=== PATIENT | male | born 1985 | race African-American/Black ===

== ENCOUNTER 2019-03-04 17:54 | Observation (INO) | payer OTHER ==
[2019-03-04] MEDS ORDERED: HYDROmorphone 1 MG/1 ML INJ IV ONE (18:37)
--- NOTE | 2019-03-04 19:04 | XRay Report ---
HISTORY:injury, deformity COMPARISON: None. TECHNIQUE: AP lateral and obliques views were obtained FINDINGS: Bones: Transverse fracture midshaft of the radius with overriding and displacement. Joint spaces: Maintained. Soft tissues: No significant abnormality. Additional findings: None. IMPRESSION: 1. Midshaft fracture of the radius Signer Name: Dima Gonzalez MD Signed: 03/04/2019 7:00 PM Workstation Name: [id number]
[2019-03-04] MEDS ORDERED: SODIUM CHLORIDE 0.9% 1000 ML 1,000 ML IV ONE ×2 (19:46→21:42)
[2019-03-04 20:04] LABS: Basophils % (Auto) 0.3 % (0.0-1.8); Eosinophils % (Auto) 0.3 % (0.0-4.3); Hematocrit 37.7 % (35.5-45.6); Hemoglobin 12.7 gm/dl (11.8-15.2); Lymphocytes # (Auto) 1.7 K/mm3 (1.2-5.4); Lymphocytes % (Auto) 15.8 % (13.4-35.0); Mean Corpuscular HGB Conc 34 % (32-34); Mean Corpuscular Volume 84 fl (84-94); Monocytes % (Auto) 9.3 % (0.0-7.3); Platelet Count 255 K/mm3 (140-440); Red Blood Count 4.48 M/mm3 (3.65-5.03); Red Cell Distribution Width 12.8 % (13.2-15.2)
[2019-03-04] MEDS ORDERED: KETOROLAC 30 MG/1 ML INJ IV ONE (20:17)
[2019-03-04 20:18] LABS: INR 1.11 (0.87-1.13)
[2019-03-04 20:24] LABS: BUN/Creatinine Ratio 23; Blood Urea Nitrogen 16 mg/dL (9-20); Calcium 8.7 mg/dL (8.4-10.2); Hemolysis Index 3
[2019-03-04] MEDS ORDERED: KETAMINE 500 MG/5 ML VIAL MDV ONE (20:51)
[2019-03-04] MEDS ORDERED: KETAMINE 500 MG/5 ML VIAL MDV IV ONE (21:00)
--- NOTE | 2019-03-04 21:00 | Emergency Department Report ---
ED Extremity Problem HPI - General Chief complaint: Extremity Injury, Upper Stated complaint: FRACTURED (R) ARM Time Seen by Provider: 03/04/19 18:49 Source: patient, EMS Mode of arrival: Stretcher Limitations: No Limitations - History of Present Illness Initial comments: Patient reports that he was running and fell onto the concrete on his outstretched right arm. Reports pain at the right forearm after the fall. Denies head trauma. Denies alcohol/drugs. MD Complaint: extremity pain Severity scale (0 -10): 7 - Related Data Home Medications Medication Instructions Recorded Confirmed Last Taken Lisinopril/Hydrochlorothiazide 1 tab PO QDAY 01/25/16 01/25/16 01/24/16 [Zestoretic 10-12.5 mg] y Allergies Allergy/AdvReac Type Severity Reaction Status Date / Time No Known Allergies Allergy Verified 01/25/16 11:12 ED Review of Systems ROS: Stated complaint: FRACTURED (R) ARM Other details as noted in HPI Other: GENERAL: No weight change, fatigue, fever, chills, or night sweats SKIN: No changes in skin or hair, no itching, no rashes, no jaundice HEAD: No trauma, headache, or visual changes EYES: No blurriness, tearing, itching, acute visual loss, conjunctival discoloration, or scleral icterus EARS: No hearing loss, tinnitus, vertigo, or earache NOSE: No rhinorrhea, stuffiness, sneezing, itching, or epistaxis MOUTH: No bleeding gums, hoarseness, sore throat, or swelling CARDIAC: No new murmur, chest pain, palpitations, dyspnea on exertion, orthopnea, PND, or edema RESPIRATORY: No shortness of breath, wheeze, cough, sputum production, he moptysis, pneumonia, asthma, bronchitis, or emphysema GI: No change in appetite, nausea, vomiting, dysphagia, diarrhea, constipation, hematemesis, melena, hematochezia, or abdominal pain URINARY: No frequency, urgency, polyuria, dysuria, hematuria, or incontinence MUSCULOSKELETAL: Right forearm pain and deformity NEUROLOGIC: No headache, syncope, loss of sensation, numbness, tingling, tremors, weakness, paralysis, seizures HEMATOLOGIC: No anemia, easy bruising, bleeding, petechiae, or purpura ENDOCRINE: No hot or cold intolerance, sweating, polyuria, polydipsia or, polyphagia no thyroid problems PSYCHIATRIC: No change in mood, no anxiety, no depression ED Past Medical Hx - Past Medical History Previous Medical History?: No Hx Hypertension: Yes - Surgical History Past Surgical History?: No - Social History Smoking Status: Former Smoker Substance Use Type: None - Medications Home Medications: Home Medications Medication Instructions Recorded Confirmed Last Taken Type Lisinopril/Hydrochlorothiazide 1 tab PO QDAY 01/25/16 01/25/16 01/24/16 History [Zestoretic 10-12.5 mg] y ED Physical Exam - General Limitations: No Limitations - Other Other exam information: GENERAL: Patient in no acute distress HEAD: Normocephalic, atraumatic EYES: PERRLA, EOM intact, no scleral icterus, no conjunctival hemorrhage, visual guidry and acuity wnl NOSE: No tenderness, discharge, sinus tenderness MOUTH: No erythema, bleeding, exudate HEART: Regular rate and rhythm, no murmur, S1-S2 are auscultated, no edema, pulses are symmetric LUNGS: No respiratory distress. Bilateral breath sounds, No tachypnea, No retractions, No wheezing, rales, rhonchi ABDOMEN: Normal bowel sounds, abdomen soft, no tenderness, no rebound, no guarding, no distention, no masses, no CVA tenderness MUSCULOSKELETAL: Right forearm tendernss, deformity. Neurovascularly intact. NEUROLOGIC: GCS 15, Alert and Oriented x3, Cranial nerves intact, normal sensation, normal strength, no cerebellar deficit, NIHSS 0 SKIN: Skin is warm and dry, no wounds, no rashes ED Course Vital Signs 03/04/19 03/04/19 03/04/19 18:12 20:04 20:09 Temperature 99.4 F Pulse Rate 104 H 102 H Respiratory 18 21 18 Rate Blood Pressure 143/85 O2 Sat by Pulse 96 Oximetry 03/04/19 03/04/19 03/04/19 20:16 20:30 20:46 Temperature Pulse Rate 103 H 100 H 99 H Respiratory 31 H 21 22 Rate Blood Pressure O2 Sat by Pulse 93 95 91 Oximetry 03/04/19 03/04/19 03/04/19 21:00 21:16 21:30 Temperature Pulse Rate 103 H 104 H 101 H Respiratory 28 H 24 18 Rate Blood Pressure 137/77 132/82 140/90 O2 Sat by Pulse 95 95 94 Oximetry 03/04/19 03/04/19 03/04/19 21:34 21:46 22:00 Temperature Pulse Rate 99 H 96 H 94 H Respiratory 20 21 25 H Rate Blood Pressure 135/83 143/85 O2 Sat by Pulse 93 93 Oximetry 03/04/19 22:16 Temperature Pulse Rate 92 H Respiratory 27 H Rate Blood Pressure 140/77 O2 Sat by Pulse 95 Oximetry - Moderate Sedation Indications: fracture/dislocation redu ASA Class: II Mallampati Airway Score: 2 Time of Last PO Intake: 14:00 (approximately) Preparation: heater worker applied, pulse oximeter, capnometry used, supplemental O2 applied, suction/airway equipment at bedside, IV secured Ketamine: IV Ketamine Dose: 35 Complications: none Patient Tolerated Procedure: well, no complications - Orthopedic Fracture Reduction Fracture #1 Consent Obtained: written consent Time Out Performed: Yes Side: right Fracture Reduction Location: radius Analgesia: moderate sedation Technique: traction/counter-traction Post Reduction X-rays Demonstrate: acceptable reduction Post-Reduction Neuro Exam: intact Post-Reduction Vascular Exam: intact Splint Applied: Yes (lorena) Patient Tolerated Procedure: well, no complications ED Medical Decision Making - Lab Data Result diagrams: 03/04/19 19:50 03/04/19 19:50 Laboratory Results - last 24 hr 03/04/19 03/04/19 03/04/19 19:50 19:50 19:50 WBC 10.5 RBC 4.48 Hgb 12.7 Hct 37.7 MCV 84 MCH 28 MCHC 34 RDW 12.8 L Plt Count 255 Lymph % (Auto) 15.8 [place] % (Auto) 9.3 H Eos % (Auto) 0.3 Baso % (Auto) 0.3 Lymph # 1.7 [place] # 1.0 H Eos # 0.0 Baso # 0.0 Seg Neutrophils % 74.3 H Seg Neutrophils # 7.8 H PT 14.2 INR 1.11 APTT 37.0 H Sodium 136 L Potassium 3.7 Chloride 98.5 Carbon Dioxide 25 Anion Gap 16 BUN 16 Creatinine 0.7 L Estimated GFR > 60 BUN/Creatinine Ratio 23 Glucose 110 H Calcium 8.7 - Radiology Data Radiology results: report reviewed - Medical Decision Making At [address] Lima orthopedic surgery call back updated. Reports the patient injury required ORIF for repair. Reports closed reduction will be unsuccessful. Request sugar tong splint. Reports since patient is neurovascularly intact, the patient has the option to be discharged with outpatient follow up, or the patient can stay in the hospital overnight for surgical repair in the morning. Request admit the patient to the hospitalist. Patient updated and reports he will think about his options and make a decision. At 2244 patient comfortable. Reports some nausea. Reports he prefers admission for ortho evaluation in the morning. Dr. Be hospitalist updated and accepts admission. Critical Care Time: Yes Critical care time in (mins) excluding proc time.: 42 Critical care attestation.: If time is entered above; I have spent that time in minutes in the direct care of this critically ill patient, excluding procedure time. 42 ED Disposition Clinical Impression: Right radial fracture Qualifiers: Encounter type: initial encounter Radius location: shaft Fracture type: closed Fracture morphology: transverse Fracture alignment: displaced Qualified Code(s): S52.321A - Displaced transverse fracture of shaft of right radius, initial encounter for closed fracture Disposition: DC-09 OP ADMIT IP TO THIS HOSP Is pt being admited?: Yes Condition: Stable Time of Disposition: 22:46
[2019-03-04] MEDS ORDERED: ONDANSETRON 4 MG/2 ML INJ ONE (21:09)
[2019-03-04] MEDS ORDERED: ONDANSETRON 4 MG/2 ML INJ IV ONE (21:25)
--- NOTE | 2019-03-04 21:52 | XRay Report ---
RIGHT FOREARM 1 VIEW(S) 9:25 PM INDICATION / CLINICAL INFORMATION: dislocation COMPARISON: 6:24 PM FINDINGS: BONES / JOINT(S): There is slight improvement in the displaced radial shaft fracture, but there is 9 mm of persistent radial displacement of the distal fracture fragment. Improved alignment of the dista l radioulnar joint. SOFT TISSUES: Right arm is in a fiberglass splint. ADDITIONAL FINDINGS: None. Signer Name: Alisa Conklin MD Signed: 03/04/2019 9:47 PM Workstation Name: [id number]
[2019-03-04] MEDS ORDERED: ONDANSETRON 4 MG/2 ML INJ IV PRN (22:47)
[2019-03-04] MEDS ORDERED: ACETAMINOPHEN 325 MG TAB PO PRN (22:47)
[2019-03-04] MEDS ORDERED: PROCHLORPERAZINE EDISYLATE 10 MG/2 ML VIAL IV ONE (22:49)
[2019-03-04] MEDS ORDERED: MORPHINE 2 MG/1 ML INJ IV PRN (23:01)
--- NOTE | 2019-03-04 23:48 | History and Physical Report ---
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 ED with complaints of right forearm pain and deformity. Patient states that he was running in and hold in his radio when he tripped and fell onto the concrete using his right hand to break his fall. After getting up on the concrete patient noticed that his right forearm was deformed. Shortly after he began experiencing right forearm pain. He rates his pain 7/10. The pain is achy and constant. He denies head injury/trauma or loss of consciousness. Past History Past Medical History: hypertension Past Surgical History: No surgical history Social history: other (smokes 1-2 cigarettes occasionally) Family history: hypertension Medications and Allergies Allergies Allergy/AdvReac Type Severity Reaction Status Date / Time No Known Allergies Allergy Verified 01/25/16 11:12 Home Medications Medication Instructions Recorded Confirmed Last Taken Type Lisinopril/Hydrochlorothiazide 12.5 tab PO QDAY 01/25/16 03/04/19 03/04/19 History [Zestoretic 10-12.5 mg] Active Meds: Active Medications Acetaminophen (Tylenol) 650 mg PO Q4H PRN PRN Reason: Pain MILD(1-3)/Fever >100.5/[place] Morphine Sulfate (Morphine) 2 mg IV Q4H PRN PRN Reason: Pain, Moderate (4-6) Ondansetron HCl (Zofran) 4 mg IV Q8H PRN PRN Reason: Nausea And Vomiting Sodium Chloride (Sodium Chloride Flush Syringe 10 Ml) 10 ml IV BID SANDY Sodium Chloride (Sodium Chloride Flush Syringe 10 Ml) 10 ml IV PRN PRN PRN Reason: LINE FLUSH Review of Systems All systems: negative Musculoskeletal: other (right forearm pain and deformity with limited range of motion) Exam - Physical Exam Narrative exam: General appearance: Present: No acute distress, alert and oriented 3, pleasant, well-developed, well-nourished, adult male - EENT Eyes: Present: PERRL, EOM intact ENT: hearing intact, normal dentition - Neck Neck: Present: supple, normal ROM - Respiratory Respiratory effort: Non-labored Respiratory: bilateral: CTA - Cardiovascular Heart rate:92 (bpm) Rhythm:SR Heart Sounds: Present: S1, S2. - Extremities Extremities: no ischemia, pulses intact - Peripheral Assessment Peripheral Pulses: within normal limits - Abdominal General gastrointestinal: soft, non-tender, normal bowel sounds, - Integumentary Integumentary: Present: warm, dry - Musculoskeletal Musculoskeletal: Right forearm deformity limited range of motion, able to move lower extremities, able to move left upper extremity, -Neurological Neurological: CN II-XII grossly intact - Psychiatric Psychiatric: cooperative - Constitutional Vitals: Temp Pulse Resp BP Pulse Ox 99.4 F 92 H 27 H 140/77 95 03/04/19 18:12 03/04/19 22:16 03/04/19 22:16 03/04/19 22:16 03/04/19 22:16 Results - Labs CBC & Chem 7: 03/04/19 19:50 03/04/19 19:50 Labs: Laboratory Last Values WBC 10.5 K/mm3 (4.5-11.0) 03/04/19 19:50 RBC 4.48 M/mm3 (3.65-5.03) 03/04/19 19:50 Hgb 12.7 gm/dl (11.8-15.2) 03/04/19 19:50 Hct 37.7 % (35.5-45.6) 03/04/19 19:50 MCV 84 fl (84-94) 03/04/19 19:50 MCH 28 pg (28-32) 03/04/19 19:50 MCHC 34 % (32-34) 03/04/19 19:50 RDW 12.8 % (13.2-15.2) L 03/04/19 19:50 Plt Count 255 K/mm3 (140-440) 03/04/19 19:50 Lymph % (Auto) 15.8 % (13.4-35.0) 03/04/19 19:50 [place] % (Auto) 9.3 % (0.0-7.3) H 03/04/19 19:50 Eos % (Auto) 0.3 % (0.0-4.3) 03/04/19 19:50 Baso % (Auto) 0.3 % (0.0-1.8) 03/04/19 19:50 Lymph # 1.7 K/mm3 (1.2-5.4) 03/04/19 19:50 [place] # 1.0 K/mm3 (0.0-0.8) H 03/04/19 19:50 Eos # 0.0 K/mm3 (0.0-0.4) 03/04/19 19:50 Baso # 0.0 K/mm3 (0.0-0.1) 03/04/19 19:50 Seg Neutrophils % 74.3 % (40.0-70.0) H 03/04/19 19:50 Seg Neutrophils # 7.8 K/mm3 (1.8-7.7) H 03/04/19 19:50 PT 14.2 Sec. (12.2-14.9) 03/04/19 19:50 INR 1.11 (0.87-1.13) 03/04/19 19:50 APTT 37.0 Sec. (24.2-36.6) H 03/04/19 19:50 Sodium 136 mmol/L (137-145) L 03/04/19 19:50 Potassium 3.7 mmol/L (3.6-5.0) 03/04/19 19:50 Chloride 98.5 mmol/L (98-107) 03/04/19 19:50 Carbon Dioxide 25 mmol/L (22-30) 03/04/19 19:50 Anion Gap 16 mmol/L 03/04/19 19:50 BUN 16 mg/dL (9-20) 03/04/19 19:50 Creatinine 0.7 mg/dL (0.8-1.5) L 03/04/19 19:50 Estimated GFR > 60 ml/min 03/04/19 19:50 BUN/Creatinine Ratio 23 % 03/04/19 19:50 Glucose 110 mg/dL (75-100) H 03/04/19 19:50 Calcium 8.7 mg/dL (8.4-10.2) 03/04/19 19:50 - Imaging and Cardiology Imaging and Cardiology: XR Right Forearm: FINDINGS: Bones: Transverse fracture midshaft of the radius with overriding and displacement. Joint spaces: Maintained. Soft tissues: No significant abnormality. Additional findings: None. IMPRESSION: 1. Midshaft fracture of the radius XR Right Fore Arm post splint application: FINDINGS: BONES / JOINT(S): There is slight improvement in the displaced radial shaft fracture, but there is 9 mm of persistent radial displacement of the distal fracture fragment. Improved alignment of the distal radioulnar joint. SOFT TISSUES: Right arm is in a fiberglass splint. ADDITIONAL FINDINGS: None. 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 Right Forearm Fracture -Pt was running and fell on right arm -C/o right forearm pain and deformity -XR Right Forearm shows Midshaft fracture of the radius -NPO -Continue Supportive Care -Dr. Lima following with plans for ORIF for repair in am HTN -Monitor BP -Resume home antihypertensive meds home antihypertensive meds once medication reconciliation has been completed Tobacco use -Smokes 1-2 cigarettes every 2-3 months -Counseled for cessation -Nicotine patch when necessary Advance Directives: No VTE prophylaxis?: Mechanical Plan of care discussed with patient/family: Yes <OSORIO JAMA - Last Filed: 03/05/19 01:56> History of Present Illness Date of admission: 03/05/19 01:46 Medications and Allergies Active Meds: Active Medications Acetaminophen (Tylenol) 650 mg PO Q4H PRN PRN Reason: Pain MILD(1-3)/Fever >100.5/[place] Enoxaparin Sodium (Enoxaparin) 40 mg SUB-Q DAILY SANDY Morphine Sulfate (Morphine) 2 mg IV Q4H PRN PRN Reason: Pain, Moderate (4-6) Nicotine (Habitrol) 14 mg TD QDAY PRN PRN Reason: Smoking cessation Ondansetron HCl (Zofran) 4 mg IV Q8H PRN PRN Reason: Nausea And Vomiting Sodium Chloride (Sodium Chloride Flush Syringe 10 Ml) 10 ml IV BID SANDY Sodium Chloride (Sodium Chloride Flush Syringe 10 Ml) 10 ml IV PRN PRN PRN Reason: LINE FLUSH Exam - Constitutional Vitals: Temp Pulse Resp BP Pulse Ox 98.2 F 93 H 18 138/88 95 03/05/19 01:50 03/05/19 01:50 03/05/19 01:50 03/05/19 01:50 03/05/19 01:50 Results - Labs CBC & Chem 7: 03/04/19 19:50 03/04/19 19:50 Labs: Laboratory Last Values WBC 10.5 K/mm3 (4.5-11.0) 03/04/19 19:50 RBC 4.48 M/mm3 (3.65-5.03) 03/04/19 19:50 Hgb 12.7 gm/dl (11.8-15.2) 03/04/19 19:50 Hct 37.7 % (35.5-45.6) 03/04/19 19:50 MCV 84 fl (84-94) 03/04/19 19:50 MCH 28 pg (28-32) 03/04/19 19:50 MCHC 34 % (32-34) 03/04/19 19:50 RDW 12.8 % (13.2-15.2) L 03/04/19 19:50 Plt Count 255 K/mm3 (140-440) 03/04/19 19:50 Lymph % (Auto) 15.8 % (13.4-35.0) 03/04/19 19:50 [place] % (Auto) 9.3 % (0.0-7.3) H 03/04/19 19:50 Eos % (Auto) 0.3 % (0.0-4.3) 03/04/19 19:50 Baso % (Auto) 0.3 % (0.0-1.8) 03/04/19 19:50 Lymph # 1.7 K/mm3 (1.2-5.4) 03/04/19 19:50 [place] # 1.0 K/mm3 (0.0-0.8) H 03/04/19 19:50 Eos # 0.0 K/mm3 (0.0-0.4) 03/04/19 19:50 Baso # 0.0 K/mm3 (0.0-0.1) 03/04/19 19:50 Seg Neutrophils % 74.3 % (40.0-70.0) H 03/04/19 19:50 Seg Neutrophils # 7.8 K/mm3 (1.8-7.7) H 03/04/19 19:50 PT 14.2 Sec. (12.2-14.9) 03/04/19 19:50 INR 1.11 (0.87-1.13) 03/04/19 19:50 APTT 37.0 Sec. (24.2-36.6) H 03/04/19 19:50 Sodium 136 mmol/L (137-145) L 03/04/19 19:50 Potassium 3.7 mmol/L (3.6-5.0) 03/04/19 19:50 Chloride 98.5 mmol/L (98-107) 03/04/19 19:50 Carbon Dioxide 25 mmol/L (22-30) 03/04/19 19:50 Anion Gap 16 mmol/L 03/04/19 19:50 BUN 16 mg/dL (9-20) 03/04/19 19:50 Creatinine 0.7 mg/dL (0.8-1.5) L 03/04/19 19:50 Estimated GFR > 60 ml/min 03/04/19 19:50 BUN/Creatinine Ratio 23 % 03/04/19 19:50 Glucose 110 mg/dL (75-100) H 03/04/19 19:50 Calcium 8.7 mg/dL (8.4-10.2) 03/04/19 19:50 Assessment and Plan Assessment and plan: 34-year-old man with history of hypertension status post fall and sustaining a radial fracture. Agree with plans as stated above. Patient seen and examined, discussed with nurse practitioner
[2019-03-05] MEDS ORDERED: NICOTINE 14 MG/24 HR PATCH TD PRN (00:47)
[2019-03-05 04:57] LABS: Basophils % (Auto) 0.4 % (0.0-1.8); Eosinophils % (Auto) 0.1 % (0.0-4.3); Hematocrit 35.9 % (35.5-45.6); Hemoglobin 12.2 gm/dl (11.8-15.2); Lymphocytes # (Auto) 1.6 K/mm3 (1.2-5.4); Lymphocytes % (Auto) 16.6 % (13.4-35.0); Mean Corpuscular HGB Conc 34 % (32-34); Mean Corpuscular Volume 85 fl (84-94); Monocytes # (Auto) 0.8 K/mm3 (0.0-0.8); Monocytes % (Auto) 7.9 % (0.0-7.3); Platelet Count 231 K/mm3 (140-440); Red Blood Count 4.24 M/mm3 (3.65-5.03); Red Cell Distribution Width 12.5 % (13.2-15.2)
[2019-03-05 05:15] LABS: BUN/Creatinine Ratio 20; Blood Urea Nitrogen 12 mg/dL (9-20); Calcium 8.7 mg/dL (8.4-10.2); Hemolysis Index 4
[2019-03-05] MEDS ORDERED: ENOXAPARIN 40 MG/0.4 ML INJ SUB-Q SCH (10:00)
[2019-03-05] MEDS ORDERED: fentaNYL 100 MCG/2 ML INJ IV NR (11:49)
[2019-03-05] MEDS ORDERED: fentaNYL 100 MCG/2 ML INJ IV PRN (11:49)
[2019-03-05] MEDS ORDERED: ONDANSETRON 4 MG/2 ML INJ IV PRN (11:49)
[2019-03-05] MEDS ORDERED: HYDROmorphone 1 MG/1 ML INJ IV PRN (11:49)
[2019-03-05] MEDS ORDERED: ACETAMINOPHEN 325 MG TAB PO NR (11:51)
--- NOTE | 2019-03-05 11:51 | Anesthesia Day of Surgery ---
Anesthesia Day of Surgery - Day of Surgery Patient Examined: Yes Patient H&P Reviewed: Yes Patient is NPO: Yes
--- NOTE | 2019-03-05 11:53 | Anesthesia Consultation ---
Anesthesia Consult and Med Hx Date of service: 03/05/19 - Airway Anesthetic Teeth Evaluation: Good, Crowns ROM Head & Neck: Adequate Mental/Hyoid Distance: Adequate Mallampati Class: Class II Intubation Access Assessment: Good - Pre-Operative Health Status ASA Pre-Surgery Classification: ASA2 Proposed Anesthetic Plan: General Nerve Block: AX - Pulmonary Hx Smoking: Yes - Cardiovascular System Hx Hypertension: Yes - Other Systems Hx Cancer: No
[2019-03-05] MEDS ORDERED: BUPIVACAINE-EPINEPHRINE/PF 0.5%-1:200,000 (30 ML) VIAL INFILTRATI ONE (12:00)
[2019-03-05] MEDS ORDERED: LACTATED RINGERS 1,000 ML IV SCH (12:00)
[2019-03-05] MEDS ORDERED: GABAPENTIN 300 MG CAP PO NR (12:00)
[2019-03-05] MEDS: MIDAZOLAM 2 MG/2 ML INJ IV NR ×2 (12:17→12:25)
[2019-03-05] MEDS ORDERED: NEOMY 40 MG/POLYMYXIN B 200,000 UNITS/ML (GU) AMPULE IR ONE (12:33)
[2019-03-05] MEDS ORDERED: BUPIVACAINE/PF (0.25%) 2.5 MG/ML 10 ML VIAL INFILTRATI ONE (12:33)
[2019-03-05] MEDS ORDERED: LIDOCAINE MPF (2%) 20 MG/1 ML VIAL 5 ML ONE (12:37)
[2019-03-05] MEDS ORDERED: fentaNYL 100 MCG/2 ML INJ ONE (12:37)
[2019-03-05] MEDS ORDERED: ceFAZolin/STERILE WATER 2 GM/20 ML SYRINGE IV NR (12:37)
[2019-03-05] MEDS ORDERED: MIDAZOLAM 2 MG/2 ML INJ ONE (12:37)
[2019-03-05] MEDS ORDERED: PROPOFOL 200 MG/20 ML VIAL IV ONE (12:38)
[2019-03-05] MEDS ORDERED: PHENYLEPHRINE/NS 1,000 MCG/10 ML SYRINGE (OR USE) IV ONE (13:10)
[2019-03-05] MEDS ORDERED: SODIUM CHLORIDE 0.9% IRR 1,000 ML BOTTLE IR ONE (13:36)
[2019-03-05] MEDS ORDERED: ONDANSETRON 4 MG/2 ML INJ ONE (14:12)
[2019-03-05] MEDS ORDERED: dexAMETHasone 20 MG/5 ML VIAL ONE (14:12)
[2019-03-05] MEDS ORDERED: KETOROLAC 30 MG/1 ML INJ ONE (14:12)
--- NOTE | 2019-03-05 14:28 | Consultation ---
History of Present Illness - [facility] Consult date: 03/05/19 Consult reason: fracture History of present illness: 34-year-old male who complains of right forearm pain and deformity after a fall earlier, states he was in pursuit of suspect when he tripped and landed onto his right outstretched arm patient complained of immediate pain and deformity afterwards. He was brought to our emergency room where x-rays were taken revealing a displaced distal third radius fracture there were no other complaints noted Past History Past Medical History: hypertension Past Surgical History: No surgical history Social history: other (smokes 1-2 cigarettes occasionally) Family history: hypertension Medications and Allergies Allergies Allergy/AdvReac Type Severity Reaction Status Date / Time No Known Allergies Allergy Verified 01/25/16 11:12 Home Medications Medication Instructions Recorded Confirmed Last Taken Type Lisinopril/Hydrochlorothiazide 12.5 tab PO QDAY 01/25/16 03/04/19 03/04/19 History [Zestoretic 10-12.5 mg] oxyCODONE /ACETAMINOPHEN [Percocet 1 tab PO Q4HR #30 tab 03/05/19 Unknown Rx 5/325] Active Meds: Active Medications Acetaminophen (Tylenol) 650 mg PO Q4H PRN PRN Reason: Pain MILD(1-3)/Fever >100.5/[place] Acetaminophen (Tylenol) 975 mg PO ONCE NR Stop: 03/05/19 18:00 Last Admin: 03/05/19 12:15 Dose: 975 mg Documented by: Cefazolin Sodium (Ancef/Sterile Water 2 Gm/20 Ml) 2 gm IV PREOP NR Enoxaparin Sodium (Enoxaparin) 40 mg SUB-Q DAILY SANDY Fentanyl (Sublimaze) 50 mcg IV Q5MIN PRN PRN Reason: Pain , Severe (7-10) Stop: 03/05/19 18:00 Fentanyl (Sublimaze) 100 mcg IV ONCE NR Stop: 03/05/19 18:00 Last Admin: 03/05/19 12:17 Dose: 100 mcg Documented by: Gabapentin (Gabapentin) 600 mg PO PREOP NR Stop: 03/05/19 18:00 Last Admin: 03/05/19 12:15 Dose: 600 mg Documented by: Hydromorphone HCl (Dilaudid) 0.5 mg IV Q10MIN PRN PRN Reason: Pain , Severe (7-10) Stop: 03/05/19 18:00 Lactated Ringer's (Lactated Ringers) 1,000 mls @ 100 mls/hr IV DIRECT SANDY Last Admin: 03/05/19 11:30 Dose: 100 mls/hr Documented by: Midazolam HCl (Versed) 2 mg IV PREOP NR Stop: 03/05/19 23:59 Last Admin: 03/05/19 12:25 Dose: 2 mg Documented by: Morphine Sulfate (Morphine) 2 mg IV Q4H PRN PRN Reason: Pain, Moderate (4-6) Nicotine (Habitrol) 14 mg TD QDAY PRN PRN Reason: Smoking cessation Ondansetron HCl (Zofran) 4 mg IV Q8H PRN PRN Reason: Nausea And Vomiting Ondansetron HCl (Zofran) 4 mg IV ONCE PRN PRN Reason: Nausea And Vomiting Stop: 03/05/19 18:00 Sodium Chloride (Sodium Chloride Flush Syringe 10 Ml) 10 ml IV BID SANDY Sodium Chloride (Sodium Chloride Flush Syringe 10 Ml) 10 ml IV PRN PRN PRN Reason: LINE FLUSH Physical Examination - Physical exam Narrative exam: On physical examination significant musculoskeletal findings relates to the right upper extremity at the right forearm patient is noted to have obvious deformity with moderate swelling skin was intact decreased active range of motio n was noted at the elbow and wrist patient was tender over the radial shaft with gross instability noted at the radius there was good capillary refill and compartments were soft Eyes: PERRL ENT: Positive: clear oral mucosa Respiratory effort: normal Respiratory: bilateral: CTA Rhythm: regular Heart Sounds: Positive: S1 & S2 General gastrointestinal: Positive: soft, non-tender, non-distended, normal bowel sounds Integumentary: clear, warm, dry Neurologic: Positive: CNII-XII intact, moves all extremities, gait normal. Negative: focal deficits - Cervical Spine Neck pain: none Tenderness with palpation: none Full ROM: yes ROM: flexion: normal ROM: extension: normal ROM: rotation right: normal ROM: rotation left: normal ROM: lateral flexion right: normal ROM: lateral flexion left: normal - Lumbar Spine Back pain: none Tenderness with palpation: none Appearance: normal Full ROM: yes ROM: flexion: normal ROM: extension: normal ROM: rotation right: normal ROM: rotation left: normal ROM: lateral flexion right: normal ROM: lateral flexion left: normal Assessment and Plan Assessment a displaced right radial shaft fracture Plan - the patient will require open reduction and internal fixation right radius
--- NOTE | 2019-03-05 14:31 | Procedure Note ---
Date of procedure: 03/05/19 Pre-op diagnosis: displaced right radial shaft fracture Post-op diagnosis: same Procedure: Open reduction internal fixation right radial shaft fracture Procedure The patient was brought to the OR Irion I table in supine position following induction and intubation by anesthesia the patient's right upper extremity was prepped and draped in the usual sterile manner. A timeout procedure was done to identify the patient and the correct operative site.The arm was then exsanguinated followed by inflation of the pneumatic tourniquet to 250 mmHg. A volar incision was made over the middle to proximal third of the forearm along the radial border this was then taken down through skin and subcutaneous the brachioradialis muscle was identified and using the inter-nervous plane the neurovascular structures were seen and retracted out of the operative field this brought us down to the fracture site using a periosteal elevator the soft tissues were debrided from the fracture site using 2 bone-holding forceps the fracture was then manipulated into a reduced position. A 6-hole locking plate was applied to the volar surface of the radius and secured with screws of various lengths, an AP and lateral view was obtained showing good reduction at the fracture and placement of our hardware next the wound was copiously irrigated and was closed in a standard routine fashion. Dressings were applied as well as a well padded volar splint the patient tolerated the procedure there were no complications and he was taken to postanesthesia recovery in stable condition Anesthesia: GETA Anesthesia: MAC, regional Surgeon: HERMAN WALKER (Grabiel Barnhart M.D. - [address] [place] [address]) Estimated blood loss: minimal Pathology: none Condition: stable Disposition: PACU
--- NOTE | 2019-03-05 15:00 | XRay Report ---
RIGHT FOREARM, 2 VIEWS HISTORY: Right radius fracture FINDINGS: 12 seconds of fluoroscopy time was provided by radiology during open reduction and internal fixation of a mid to distal right radial fracture with metal plate and screws. Alignment at the [facility] site is anatomic. The visualized ulna is intact. Mild soft tissue swelling is noted. Signer Name: Arthur Aponte Jr, MD Signed: 03/05/2019 2:56 PM Workstation Name: [id number]
[2019-03-05 15:57] VITALS: BP 132/85
--- NOTE | 2019-03-05 16:37 | Progress Note ---
Hospitalist Physical - Constitutional Vitals: Temp Pulse Resp BP Pulse Ox 97.3 F L 84 16 132/85 95 03/05/19 15:40 03/05/19 15:40 03/05/19 15:40 03/05/19 15:40 03/05/19 15:40 Results - Labs CBC & Chem 7: 03/05/19 04:19 03/05/19 04:19 Labs: Laboratory Last Values WBC 9.7 K/mm3 (4.5-11.0) 03/05/19 04:19 RBC 4.24 M/mm3 (3.65-5.03) 03/05/19 04:19 Hgb 12.2 gm/dl (11.8-15.2) 03/05/19 04:19 Hct 35.9 % (35.5-45.6) 03/05/19 04:19 MCV 85 fl (84-94) 03/05/19 04:19 MCH 29 pg (28-32) 03/05/19 04:19 MCHC 34 % (32-34) 03/05/19 04:19 RDW 12.5 % (13.2-15.2) L 03/05/19 04:19 Plt Count 231 K/mm3 (140-440) 03/05/19 04:19 Lymph % (Auto) 16.6 % (13.4-35.0) 03/05/19 04:19 [place] % (Auto) 7.9 % (0.0-7.3) H 03/05/19 04:19 Eos % (Auto) 0.1 % (0.0-4.3) 03/05/19 04:19 Baso % (Auto) 0.4 % (0.0-1.8) 03/05/19 04:19 Lymph # 1.6 K/mm3 (1.2-5.4) 03/05/19 04:19 [place] # 0.8 K/mm3 (0.0-0.8) 03/05/19 04:19 Eos # 0.0 K/mm3 (0.0-0.4) 03/05/19 04:19 Baso # 0.0 K/mm3 (0.0-0.1) 03/05/19 04:19 Seg Neutrophils % 75.0 % (40.0-70.0) H 03/05/19 04:19 Seg Neutrophils # 7.3 K/mm3 (1.8-7.7) 03/05/19 04:19 PT 14.2 Sec. (12.2-14.9) 03/04/19 19:50 INR 1.11 (0.87-1.13) 03/04/19 19:50 APTT 37.0 Sec. (24.2-36.6) H 03/04/19 19:50 Sodium 138 mmol/L (137-145) 03/05/19 04:19 Potassium 4.1 mmol/L (3.6-5.0) 03/05/19 04:19 Chloride 104.0 mmol/L (98-107) 03/05/19 04:19 Carbon Dioxide 24 mmol/L (22-30) 03/05/19 04:19 Anion Gap 14 mmol/L 03/05/19 04:19 BUN 12 mg/dL (9-20) 03/05/19 04:19 Creatinine 0.6 mg/dL (0.8-1.5) L 03/05/19 04:19 Estimated GFR > 60 ml/min 03/05/19 04:19 BUN/Creatinine Ratio 20 % 03/05/19 04:19 Glucose 141 mg/dL (75-100) H 03/05/19 04:19 Calcium 8.7 mg/dL (8.4-10.2) 03/05/19 04:19 Active Medications - Current Medications Current Medications: Generic Name Dose Route Start Last Admin Trade Name Freq PRN Reason Stop Dose Admin Acetaminophen 650 mg 03/04/19 22:47 Tylenol PO Q4H PRN Pain MILD(1-3)/Fever >100.5/[place] Acetaminophen 975 mg 03/05/19 11:51 03/05/19 12:15 Tylenol PO 03/05/19 18:00 975 mg ONCE NR Administration Cefazolin Sodium 2 gm 03/05/19 12:37 Ancef/Sterile Water 2 Gm/20 Ml IV 03/05/19 23:59 PREOP NR Enoxaparin Sodium 40 mg 03/05/19 10:00 Enoxaparin SUB-Q DAILY SANDY Fentanyl 50 mcg 03/05/19 11:49 Sublimaze IV 03/05/19 18:00 Q5MIN PRN Pain , Severe (7-10) Fentanyl 100 mcg 03/05/19 11:49 03/05/19 12:17 Sublimaze IV 03/05/19 18:00 100 mcg ONCE NR Administration Gabapentin 600 mg 03/05/19 12:00 03/05/19 12:15 Gabapentin PO 03/05/19 18:00 600 mg PREOP NR Administration Hydromorphone HCl 0.5 mg 03/05/19 11:49 Dilaudid IV 03/05/19 18:00 Q10MIN PRN Pain , Severe (7-10) Lactated Ringer's 1,000 mls @ 100 mls/hr 03/05/19 12:00 03/05/19 11:30 Lactated Ringers IV 100 mls/hr DIRECT SANDY Administration Midazolam HCl 2 mg 03/05/19 12:00 03/05/19 12:25 Versed IV 03/05/19 23:59 2 mg PREOP NR Administration Morphine Sulfate 2 mg 03/04/19 23:01 Morphine IV Q4H PRN Pain, Moderate (4-6) Nicotine 14 mg 03/05/19 00:47 Habitrol TD QDAY PRN Smoking cessation Ondansetron HCl 4 mg 03/04/19 22:47 Zofran IV Q8H PRN Nausea And Vomiting Ondansetron HCl 4 mg 03/05/19 11:49 Zofran IV 03/05/19 18:00 ONCE PRN Nausea And Vomiting Sodium Chloride 10 ml 03/05/19 10:00 Sodium Chloride Flush Syringe 10 Ml IV BID SANDY Sodium Chloride 10 ml 03/04/19 22:47 Sodium Chloride Flush Syringe 10 Ml IV PRN PRN LINE FLUSH
--- NOTE | 2019-03-05 17:38 | Post Anesthesia Evaluation ---
- Post Anesthesia Evaluation Patient Participated: Yes Airway Patent: Yes Stable Respiratory Function: Yes Nausea/Vomiting: No Temp > 96.8F: Yes Pain Manageable: Yes Adequeate Hydration: Yes Anesthesia Complications: No Block Receding Appropriately: Yes Patient on Ventilator: No
[2019-03-05] MEDS ORDERED: oxyCODONE /ACETAMINOPHEN 5-325MG TAB PO STA (18:27)
--- NOTE | 2019-03-05 20:35 | Discharge Summary ---
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 Initial workup is consistant with Rt Radial shaft fracture.Admitted and managed appropriately . Seen by ortho and underwent ORIF procedure.Received post op care.PT/OT,advised fall precautions Today patient is comfortable,no new complaints.Vital signs stable. Cleared by ortho. Stable at discharge Discharge Diagnosis: --Status post fall; right arm injury --Displaced right radial shaft fracture s/p Open reduction internal fixation right radial shaft fracture --Hypertension; well controlled Continue current antihypertensives and when necessary medications --Ongoing tobacco use; smoking cessation Nicotine patch as needed Stable at discharge Disposition: DC-01 TO HOME OR SELFCARE Time spent for discharge: 32 min Core Measure Documentation - Palliative Care Palliative Care/ Comfort Measures: Not Applicable - Core Measures Any of the following diagnoses?: none Exam - Constitutional Vitals: Temp Pulse Resp BP Pulse Ox 97.3 F L 84 16 132/85 95 03/05/19 15:40 03/05/19 15:40 03/05/19 15:40 03/05/19 15:40 03/05/19 15:40 General appearance: Present: no acute distress, well-nourished - EENT Eyes: Present: PERRL, EOM intact - Neck Neck: Present: supple, normal ROM - Respiratory Respiratory effort: normal Respiratory: bilateral: diminished, negative: rales, rhonchi, wheezing - Cardiovascular Rhythm: regular Heart Sounds: Present: S1 & S2 - Extremities Extremities: no ischemia, abnormal (rt elbow dressing in place) - Abdominal General gastrointestinal: Present: soft, non-tender, non-distended, normal bowel sounds - Integumentary Integumentary: Present: clear, warm - Musculoskeletal Musculoskeletal: strength equal bilaterally - Psychiatric Psychiatric: appropriate mood/affect, cooperative - Neurologic Neurologic: CNII-XII intact, moves all extremities Plan Activity: advance as tolerated, fall precautions Diet: regular Additional Instructions: Advised to follow. Postoperative Instructions Follow up with: PRIMARY CARE, [Primary Care Provider] - 7 Days HERMAN WALKER MD [Staff Physician] - 7 Days Prescriptions: oxyCODONE /ACETAMINOPHEN [Percocet 5/325] 1 tab PO Q4HR #30 tab
== END 2019-03-05 19:00 | disposition home or self-care (01) ==
LOC: ED 17:54 → 3B-SURG 03-05 01:46
PROVIDERS: ADMIT Internal Medicine; ATTEND Internal Medicine
DX: S52.301A Unspecified fracture of shaft of right radius, initial encounter for closed fracture (principal); I10 Essential (primary) hypertension; F17.210 Nicotine dependence, cigarettes, uncomplicated; W01.0XXA Fall on same level from slipping, tripping and stumbling without subsequent striking against object, initial encounter; Y93.89 Activity, other specified; Y92.89 Other specified places as the place of occurrence of the external cause; Y99.8 Other external cause status
CPT/HCPCS: 25515; 36415; 64417; 73090; 80048; 85025; 85610; 85730; 96374; 96375; 99291; C1713; G0378; J0690; J0780; J1100; J1170; J1885; J2250; J2370; J2405; J2704; J3010; J7030; J7120